=== PATIENT | female | born 1970 | race Two or more races ===

== ENCOUNTER 2016-12-10 15:31 | Emergency (ER) | payer MEDICAID ==
[~2016-12-10] VITALS: Ht 160 cm; Wt 113.4 kg
[2016-12-10 16:00] VITALS: BP 135/76
[2016-12-10] MEDS ORDERED: Metoclopramide 10mg/10ml Liq ORAL ONE (16:00)
[2016-12-10] MEDS ORDERED: KCl 10% 40mEq/30ml liquid ORAL ONE (16:00)
[2016-12-10] MEDS ORDERED: Excedrin Migraine tab ORAL ONE (16:00)
[2016-12-10 16:20] LABS: APPEARANCE,URINE CLEAR; KETONES,URINE NEGATIVE (NEGATIVE); LEUKOCYTE ESTERASE ,URINE NEGATIVE (NEGATIVE); NITRITE,URINE NEGATIVE (NEGATIVE); PH,URINE 8 (4.5-8.0); PROTEIN,URINE NEGATIVE (NEGATIVE); UROBILINOGEN,URINE NORMAL MG/DL (0.0-1.0)
[2016-12-10 16:25] LABS: AMORPHOUS SEDIMENT,UR FEW /LPF; BACTERIA,URINE OCCASIONAL /HPF; SQUAMOUS EPITHELIAL CELL,UR OCCASIONAL /LPF (NONE/OCC); WBC,URINE 0-2 /HPF (0 - 2)
[2016-12-10 17:30] VITALS: BP 126/80
[2016-12-10] MEDS ORDERED: EXCEDRIN MIGRA1 EACH PO (17:54)
--- NOTE | 2016-12-10 17:54 | Emergency Room Report ---
History of Present Illness General Chief Complaint: Dizziness Source: Patient Present Illness HPI 46 YO Female presents to the ED c/o headache x 9/10 in severity with "shakiness ". PILLAI is Described as constant left posterior pulsatile PILLAI with dizziness that was progressive in onset x 2 days. Pt reports current PILLAI symptoms are consistent with previous experienced PILLAI's which pt. reports having 2x per month for over 6 months. pt. denies changes in character. pt. denies hyperacusis, photophobia, or vomiting. reports nausea denies head trauma/fall, neck pain/ stiffness , recent chiropractic adjustments. pt. denies visual changes. reports taking 2 IBU which gave some minimal relief, however PILLAI has returned. pt. denies previous evaluations of PILLAI. pt. denies dysuria, hematuria or frequency. denies unilateral weakness, vertigo or recent illness. denies . Denies CP, Palpitations, LOC, AMS, dizziness, Changes in Vision, Sensation, paresthesias, or a sudden severe headache. Allergies: Coded Allergies: PENICILLINS (Verified Allergy, Unknown, 12/10/16) Patient History Past Medical History: see triage record Past Surgical History: none Pertinent Family History: none Last Menstrual Period: 5 days ago Now: No Immunizations: UTD Reviewed Nursing Documentation: PMH: Agreed, PSxH: Agreed Nursing Documentation-PMH Past Medical History: No Stated History Review of Systems All Other Systems: negative except mentioned in HPI Physical Exam Vital Signs Date Time Temp Pulse Resp B/P (MAP) Pulse Ox O2 Delivery O2 Flow Rate FiO2 12/10/16 15:35 97.5 85 18 109/76 96 Room Air Sp02 EP Interpretation: reviewed, normal General Appearance: no apparent distress, alert, GCS 15, non-toxic Head: normocephalic, atraumatic Eyes: bilateral eye normal inspection, bilateral eye PERRL ENT: hearing grossly normal, normal voice Neck: full range of motion, no meningismus, no bony tend, supple/symm/no masses Respiratory: lungs clear, normal breath sounds, speaking full sentences Cardiovascular #1: regular rate, rhythm Gastrointestinal: normal bowel sounds, non tender, soft, no guarding, no rebound Rectal: deferred Genitourinary: normal inspection, no CVA tenderness Musculoskeletal: back normal, gait/station normal, normal range of motion Neurologic: alert, oriented x3, responsive, motor strength/tone normal, sensory intact, cerebellar normal, normal gait, speech normal, no pronator, other - negative jefferson's , no pronator drift, no facial droop. Skin: normal color, no rash, warm/dry, well hydrated Lymphatic: no adenopathy Medical Decision Making PA Attestation Dr. Mendoza is my supervising Physician whom patient management has been discussed with. Diagnostic Impression: Primary Impression: Head ache Qualified Codes: R51 - Headache ER Course 46 YO Female presents to the ED c/o headache x 9/10 in severity with "shakiness ". PILLAI is Described as constant left posterior pulsatile PILLAI with dizziness that was progressive in onset x 2 days. Pt reports current PILLAI symptoms are consistent with previous experienced PILLAI's which pt. reports having 2x per month for over 6 months. pt. denies changes in character. pt. denies hyperacusis, photophobia, or vomiting. reports nausea denies head trauma/fall, neck pain/ stiffness , recent chiropractic adjustments. pt. denies visual changes. reports taking 2 IBU which gave some minimal relief, however PILLAI has returned. pt. denies previous evaluations of PILLAI. pt. denies dysuria, hematuria or frequency. denies unilateral weakness, vertigo or recent illness. denies . Denies CP, Palpitations, LOC, AMS, dizziness, Changes in Vision, Sensation, paresthesias, or a sudden severe headache. Ddx considered but are not limited to migraine, SAH, Psedudo motor Cerebri, Mass lesion, Cluster PILLAI, Tension PILLAI, Post lumbar puncture PILLAI. Vital signs: are WNL, pt. is afebrile H&PE are most consistent with migraine headache - no previous dx. no focal neurological deficit, no red flags such as fevers, sudden onset, or changes in character from previous PILLAI's. ORDERS: -UA: Most indicative of contamination: presence of equal amounts of bacteria and squamous cells, no elevation in inflammatory markers, nitrite negative. -urine Hcg: negative -UDS: negative - EK BPM NSR - no acute ST changes reviewed by Dr. Mendoza , his interpretation was scribed by KELSEY Workman ED INTERVENTIONS: - Reglan PO - Excedrin PO I do not suspect an emergent condition at this time. With current presentation, pt. is stable for close outpatient follow up with NEUROLOGIST Referral, and conservative treatment. D/w pt. to return promptly to ED with worsening or new symptoms.- Pt. (and or responsible republican) verbalizes' understanding and agreement with proposed treatment plan. DISCHARGE: At this time pt. is stable for d/c to home. Will provide printed patient care instructions, and any necessary prescriptions. Care plan and follow up instructions have been discussed with the patient prior to discharge. Labs Test 12/10/16 16:00 Urine Color Yellow Urine Appearance Clear Urine pH 8 (4.5-8.0) Urine Specific [place] 1.020 (1.005-1.035) Urine Protein Negative (NEGATIVE) Urine Glucose (UA) Negative (NEGATIVE) Urine Ketones Negative (NEGATIVE) Urine Occult Blood 2+ (NEGATIVE) Urine Nitrite Negative (NEGATIVE) Urine Bilirubin Negative (NEGATIVE) Urine Urobilinogen Normal MG/DL (0.0-1.0) Urine Leukocyte Esterase Negative (NEGATIVE) Urine RBC 2-4 /HPF (0 - 2) Urine WBC 0-2 /HPF (0 - 2) Urine Squamous Epithelial Cells Occasional /LPF Urine Amorphous Sediment Few /LPF (NONE) Urine Bacteria Occasional /HPF (NONE) Urine HCG, Qualitative Negative Urine Opiates Screen Negative (NEGATIVE) Urine Barbiturates Screen Negative (NEGATIVE) Phencyclidine (PCP) Screen Negative (NEGATIVE) Urine Amphetamines Screen Negative (NEGATIVE) Urine Benzodiazepines Screen Negative (NEGATIVE) Urine Cocaine Screen Negative (NEGATIVE) Urine Marijuana (THC) Screen Negative (NEGATIVE) EKG Diagnostic Results EP Interpretation: Dr. Mendoza Rate: normal Rhythm: NSR ST Segments: no acute changes ASA given to the pt in ED: No PA Scribe Text - EK BPM NSR - no acute ST changes reviewed by Dr. Mendoza , his interpretation was scribed by KELSEY Workman Last Vital Signs Date Time Temp Pulse Resp B/P (MAP) Pulse Ox O2 Delivery O2 Flow Rate FiO2 12/10/16 17:30 80 18 126/80 99 Room Air 12/10/16 17:20 97.6 Disposition: HOME, SELF-CARE Condition: Stable Scripts Aspirin/Acetaminophen/Caffeine (EXCEDRIN MIGRAINE GELTAB) 1 Each Tablet 1 EACH PO Q6HR, #20 TAB Prov: Suzanne Workman 12/10/16 Referrals: NOT CHOSEN IPA/,REFERRING (PCP) Patient Instructions: Migraine Headache Additional Instructions: Take medications as directed. Follow up with a NEUROLOGIST in 3-5 days, . --Please review list of primary care clinics, if you do not already have a primary care provider to give you a neurology referral. Return sooner to ED if new symptoms occur, or current symptoms become worse. - Please note that this Emergency Department Report was dictated using [employer] room attendant technology software, occasionally this can lead to erroneous entry secondary to interpretation by the dictation equipment. Suzanne Workman Dec 10, 2016 17:54
[2016-12-10 18:10] VITALS: BP 126/80
--- NOTE | 2016-12-11 18:34 | Cardiology Report ---
APPROVED REPORT EKG Measurement Heart [id number] Normal sinus rhythm Normal ECG
== END 2016-12-10 18:21 | disposition home or self-care (01) ==
LOC: EMR 17:37
DX: R51 Headache (principal); R42 Dizziness and giddiness; Z88.0 Allergy status to penicillin
CPT/HCPCS: 80307; 81003; 81025; 93005; 99283